=== PATIENT | male | born 1955 | race Caucasian/White ===

== ENCOUNTER 2019-04-26 17:19 | Emergency (ER) | payer SELFPAY ==
[~2019-04-26 17:19] MED LIST: Iopamidol 370 76% 100 ML VIAL ONE
[2019-04-26] MEDS ORDERED: Morphine 4 MG/ML VIAL ONE (17:49)
[2019-04-26] MEDS ORDERED: Ondansetron PF 4 MG/2 ML Vial ONE (17:49)
[2019-04-26] MEDS ORDERED: Sodium Chloride 0.9% 1,000 ML ONE ×2 (17:49→20:08)
[2019-04-26 18:11] LABS: #Basophils 0.1 thou/uL (0.0-0.2); #Lymphocytes 0.4 thou/uL (1.20-3.40); #Monocytes 0.7 thou/uL (0.11-0.59); #Neutrophils 10.1 thou/uL (1.40-6.50); %Basophils 0.5 % (0.0-1.0); %Eosinophils 0.1 % (0.0-10.0); %Lymphocytes 3.6 % (21.0-51.0); %Monocytes 6.3 % (0.0-10.0); %Neutrophils 89.5 % (42.0-75.0); Hemoglobin 15.8 g/dL (14.0-18.0); Mean Corpuscular HGB CONC 32.1 g/dL (32.0-36.0); Mean Corpuscular Hemoglobin 28.7 pg (27.0-31.0); Mean Corpuscular Volume 89.2 fL (78.0-98.0); Mean Platelet Volume 9.9 fL (7.4-10.4); Platelet Count 222 thou/uL (130-400); RBC Distribution Width 12.5 % (11.5-14.5); Red Blood Cell (RBC) Count 5.49 mill/uL (4.70-6.10); White Blood Cell (WBC) Count 11.3 thou/uL (4.8-10.8)
[2019-04-26 18:27] LABS: ALT (SGPT) 17 U/L (8-55); AST (SGOT) 22 U/L (5-34); Albumin 4.4 g/dL (3.4-4.8); Alkaline Phosphatase 81 U/L (40-110); Anion Gap 18 mmol/L (10-20); BUN (Urea Nitrogen) 9 mg/dL (8.4-25.7); Bilirubin, Total 1.5 mg/dL (0.2-1.2); Calc. Creatinine Clearance 0 mL/min (70-130); Calcium 9.3 mg/dL (7.8-10.44); Carbon Dioxide 22 mmol/L (23-31); Chloride 104 mmol/L (98-107); Estimated GFR-MDRD Greater than 90; Globulin 2.9 g/dL (2.4-3.5); Glucose 123 mg/dL (80-115); Lipase 9 U/L (8-78); Magnesium 2.1 mg/dL (1.6-2.6); Potassium 4.2 mmol/L (3.5-5.1); Protein, Total 7.3 g/dL (5.8-8.1); Sodium 140 mmol/L (136-145)
[2019-04-26] MEDS ORDERED: Morphine 2 MG/ML SYRINGE ONE (20:08)
[2019-04-26] MEDS ORDERED: Benzocaine 20% Spray 60 ML CAN ONE (20:14)
--- NOTE | 2019-04-26 20:36 | CT ---
CT ABDOMEN AND PELVIS WITH IV CONTRAST: HISTORY: Abdominal pain. COMPARISON: There are no previous exams for comparison. FINDINGS: The lung bases are clear. No free air is seen. A tiny amount of free fluid is seen in the lower abdom en. No calcified gallstones are noted. The liver, spleen, pancreas, adrenal glands and left kidney ar e normal. There is a 12 cm cyst arising from the superior pole of the left kidney. Smaller right d[place] l cysts are present. The mid-distal small bowel loops are dilated and fluid-filled. The prostate is mildly enlarged. There are vascular calcifications without evidence of aneurysmal dil atation of the abdominal aorta. There are degenerative changes in the spine. There is a right paramed kostas ventral hernia with nondilated loops of small bowel. IMPRESSION: Findings suspicious for small bowel obstruction. POS: [facility]
--- NOTE | 2019-04-26 21:22 | RAD ---
PORTABLE CHEST ONE VIEW: 04/26/2019 8:33 p.m. HISTORY: Nasogastric tube placement. FINDINGS: The heart size is normal. No lobar consolidation, pneumothoraces or pleural effusions are seen. The n asogastric tube can be traced into the esophagus. Recommend obtaining an abdominal x-ray to better vi sualize the nasogastric tube. POS: [facility]
== END 2019-04-26 21:14 | disposition short-term general hospital (02) ==
LOC: NAV ERS 17:19
DX: K56.609 Unspecified intestinal obstruction, unspecified as to partial versus complete obstruction (principal); R94.31 Abnormal electrocardiogram [ECG] [EKG]
CPT/HCPCS: 71045; 74177; 80053; 82150; 83605; 83690; 83735; 84484; 85025; 93005; 94760; 96361; 96374; 96375; 96376; J2270; J2405; J7050; Q9967